=== PATIENT | male | born 1950 | race Caucasian/White ===

== ENCOUNTER 2020-03-21 18:12 | Emergency (ER) | payer OTHER, MEDICAID ==
[~2020-03-21] VITALS: Ht 188 cm; Wt 83.9 kg
[2020-03-21 18:39] VITALS: BP 139/82
[2020-03-21 19:38] LABS: Urine Bacteria FEW /hpf (None Seen); Urine Blood TRACE /uL (Negative); Urine Specific Gravity 1.031 (1.001-1.035); Urine WBC 339 /hpf (0 - 3); Urine WBC Clumps PRESENT /hpf (None Seen)
[2020-03-21 21:23] LABS: Basophils # (auto) 0.1 10 ^3/uL (0-0.2); Basophils % (auto) 0.8 % (0.0-2.0); Eosinophils # (auto) 0.2 10 ^3/uL (0-0.8); Eosinophils % (auto) 2.3 % (0.0-7.0); Hematocrit 49.3 % (41.0-53.0); Hemoglobin 16.5 g/dL (13.5-17.5); Lymphocytes # (auto) 1.7 10 ^3/uL (0.4-5.4); Lymphocytes % (auto) 21.1 % (10.0-50.0); Mean Corpuscular Hemoglobin 31.1 pg (28.0-32.0); Mean Corpuscular Hgb Conc. 33.5 g/dL (32.0-36.0); Mean Corpuscular Volume 92.6 fL (80.0-100.0); Monocytes # (auto) 0.6 10 ^3/uL (0-1.3); Monocytes % (auto) 7.6 % (0.0-12.0); Neutrophils # (auto) 5.4 10 ^3/uL (1.6-8.6); Neutrophils % (auto) 68.2 % (37.0-80.0); Nucleated Red Blood Cells % 0.1 %; Platelet Count (auto) 181 10^3/uL (140-450); Red Blood Cells 5.32 10^6/uL (4.5-5.90); Red Cell Distribution Width 13.6 % (11.8-14.3); White Blood Cell 7.9 10^3/uL (4.4-10.8)
[2020-03-21 21:35] LABS: Albumin 3.5 g/dL (3.4-5.0); Potassium 4.1 mmol/L (3.5-5.1)
[2020-03-21 21:40] LABS: BUN/Creatinine Ratio 26.1; Bilirubin, Total 0.6 mg/dL (0.2-1.0); Total Protein 7.6 g/dL (6.4-8.2)
== END 2020-03-21 22:50 | disposition home or self-care (01) ==
LOC: ER 18:12
DX: R32 Unspecified urinary incontinence (principal); N39.0 Urinary tract infection, site not specified; E11.9 Type 2 diabetes mellitus without complications; I11.0 Hypertensive heart disease with heart failure; I50.9 Heart failure, unspecified
CPT/HCPCS: 36415; 51702; 80053; 81001; 83690; 85025

== ENCOUNTER 2022-07-01 21:23 | Inpatient (IN) | payer OTHER, MEDICAID ==
[~2022-07-01] VITALS: Ht 188 cm; Wt 91.9 kg
[2022-07-01] MEDS ORDERED: hydrALAZINE HCL 10 MG TAB PO PRN (22:45)
[2022-07-01] MEDS ORDERED: VANCOMYCIN PER PHARMACY 0 MG IV SCH (22:45)
[2022-07-01] MEDS ORDERED: ACETAMINOPHEN 325 MG TAB PO PRN (22:45)
[2022-07-01] MEDS ORDERED: ONDANSETRON HCL 4 MG/2 ML VIAL IV PRN (22:45)
[2022-07-01] MEDS ORDERED: MORPHINE SULFATE INJ 2 MG/ml SYRG IV PRN (22:45)
[2022-07-01] MEDS ORDERED: DEXTROSE (50%) 50ML SYRG IV PRN (23:00)
[2022-07-01 23:19] LABS: INR 1.1 (0.9-1.15)
[2022-07-01] MEDS ORDERED: INSLANTI SC (23:40)
[2022-07-01] MEDS ORDERED: ZOLP10TA PO (23:47)
[2022-07-02 01:52] LABS: Anion Gap 7 (5-15); BUN/Creatinine Ratio 20.6 (10.0-20.0); Blood Urea Nitrogen 27 mg/dL (7-18); Calcium 8.3 mg/dL (8.5-10.1); Carbon Dioxide 22 mmol/L (21-32); Chloride 111 mmol/L (98-107); GFR African American 69 mL/min; GFR Non-African American 57 mL/min; Glucose 174 mg/dL (74-106); Potassium 3.9 mmol/L (3.5-5.1); Sodium 140 mmol/L (136-145)
[2022-07-02] MEDS: HYDROcodone-ACET 5/325MG TAB PO PRN ×2 (02:18→11:50)
[2022-07-02 05:00] VITALS: BP 140/94
[2022-07-02] MEDS: ACCU-CHEK COMFORT CURVE STRIP VI SCH ×4 (06:31→22:14)
[2022-07-02] MEDS: InsuLIN REG 1unit/0.01ml Soln (100units/ml) SC SCH ×4 (06:33→22:22)
[2022-07-02 07:13] LABS: BUN/Creatinine Ratio 24.2 (10.0-20.0); Calcium 8.9 mg/dL (8.5-10.1)
[2022-07-02 07:18] LABS: Basophils # (auto) 0.1 10 ^3/uL (0-0.2); Basophils % (auto) 0.9 % (0.0-2.0); Eosinophils # (auto) 0.2 10 ^3/uL (0-0.8); Eosinophils % (auto) 1.7 % (0.0-7.0); Hemoglobin 15.5 g/dL (13.5-17.5); Lymphocytes # (auto) 1.5 10 ^3/uL (0.4-5.4); Mean Corpuscular Hemoglobin 31.1 pg (28.0-32.0); Mean Corpuscular Volume 94.1 fL (80.0-100.0); Monocytes # (auto) 0.7 10 ^3/uL (0-1.3); Monocytes % (auto) 7.5 % (0.0-12.0); Neutrophils # (auto) 6.7 10 ^3/uL (1.6-8.6); Neutrophils % (auto) 73.9 % (37.0-80.0); Nucleated Red Blood Cells % 0.2 %; Red Cell Distribution Width 14.5 % (11.8-14.3); White Blood Cell 9.1 10^3/uL (4.4-10.8)
[2022-07-02] MEDS ORDERED: VANCOMYCIN 1GM/250ML 250 ML IV ONE (07:30)
[2022-07-02 08:30] VITALS: BP 134/99
[2022-07-02] MEDS: CEFEPIME 1GM/ 50ML 50 ML IV SCH ×2 (11:53→22:14)
[2022-07-02 12:30] VITALS: BP 126/95
[2022-07-02] MEDS ORDERED: ALBU108A5 IN (13:22)
[2022-07-02] MEDS ORDERED: FLUT500M2 INH (13:23)
[2022-07-02] MEDS ORDERED: ZOLP5TAB5 PO (13:33)
[2022-07-02 14:50] VITALS: BP 126/95
[2022-07-02 17:00] VITALS: BP 124/83
[2022-07-02] MEDS ORDERED: ZOLPIDEM TARTRATE 5 MG TAB PO SCH (18:00)
[2022-07-02] MEDS: ALBUTEROL SULF 2.5 MG/0.5ML(0.5%) NEB SOLN NEB PRN (19:50)
[2022-07-02] MEDS: ZOLPIDEM TARTRATE 5 MG TAB PO PRN (20:36)
[2022-07-02] MEDS: VANCOMYCIN 1GM/250ML 250 ML IV SCH (20:37)
[2022-07-02] MEDS ORDERED: LORazepam 2MG/ML-1ML VIAL IV ONE (21:15)
[2022-07-02 22:00] VITALS: BP 143/95
[2022-07-02] MEDS: FLUTICASONE SALMETEROL IN SCH (22:00)
[2022-07-03 05:00] VITALS: BP 140/102
[2022-07-03] MEDS: ALBUTEROL SULF 2.5 MG/0.5ML(0.5%) NEB SOLN NEB PRN (05:41)
[2022-07-03] MEDS: ACCU-CHEK COMFORT CURVE STRIP VI SCH ×4 (06:28→22:08)
[2022-07-03] MEDS: InsuLIN REG 1unit/0.01ml Soln (100units/ml) SC SCH ×4 (06:29→22:06)
[2022-07-03 06:51] LABS: Calcium 8.7 mg/dL (8.5-10.1)
[2022-07-03 07:12] LABS: Basophils # (auto) 0.1 10 ^3/uL (0-0.2); Basophils % (auto) 1.4 % (0.0-2.0); Eosinophils # (auto) 0.1 10 ^3/uL (0-0.8); Hematocrit 43.4 % (41.0-53.0); Hemoglobin 14.9 g/dL (13.5-17.5); Lymphocytes # (auto) 1.3 10 ^3/uL (0.4-5.4); Mean Corpuscular Hemoglobin 31.3 pg (28.0-32.0); Mean Corpuscular Hgb Conc. 34.2 g/dL (32.0-36.0); Mean Corpuscular Volume 91.3 fL (80.0-100.0); Monocytes # (auto) 0.7 10 ^3/uL (0-1.3); Monocytes % (auto) 6.9 % (0.0-12.0); Neutrophils # (auto) 8.3 10 ^3/uL (1.6-8.6); Neutrophils % (auto) 78.7 % (37.0-80.0); Nucleated Red Blood Cells % 0.1 %; Red Blood Cells 4.76 10^6/uL (4.5-5.90); Red Cell Distribution Width 14.4 % (11.8-14.3); White Blood Cell 10.6 10^3/uL (4.4-10.8)
[2022-07-03] MEDS: VANCOMYCIN 1GM/250ML 250 ML IV SCH ×2 (09:22→22:07)
[2022-07-03] MEDS: FLUTICASONE SALMETEROL IN SCH ×2 (09:22→22:00)
[2022-07-03 09:56] VITALS: BP 139/99
[2022-07-03] MEDS: CEFEPIME 1GM/ 50ML 50 ML IV SCH ×2 (10:39→22:08)
[2022-07-03] MEDS ORDERED: ALBUTEROL SULF 2.5 MG/0.5ML(0.5%) NEB SOLN ONE (12:17)
[2022-07-03 13:00] VITALS: BP 126/84
[2022-07-03] MEDS: LORazepam 0.5 MG TAB PO PRN ×2 (13:59→22:37)
[2022-07-03] MEDS: ALBUTEROL SULF 2.5 MG/0.5ML(0.5%) NEB SOLN NEB SCH ×3 (14:11→22:08)
[2022-07-03 16:30] VITALS: BP 146/92
[2022-07-03] MEDS: HYDROcodone-ACET 10/325MG TAB PO PRN (20:01)
[2022-07-03 20:20] VITALS: BP 125/90
[2022-07-03 22:00] VITALS: BP 125/90
[2022-07-03] MEDS: ZOLPIDEM TARTRATE 5 MG TAB PO PRN (22:07)
[2022-07-04] VITALS (8 sets, daily range): BP systolic 122–143; BP diastolic 89–98
[2022-07-04] MEDS: ALBUTEROL SULF 2.5 MG/0.5ML(0.5%) NEB SOLN NEB SCH ×6 (02:00→22:20)
[2022-07-04] MEDS: HYDROcodone-ACET 10/325MG TAB PO PRN ×2 (02:43→10:28)
[2022-07-04] MEDS: ACCU-CHEK COMFORT CURVE STRIP VI SCH ×4 (06:55→22:22)
[2022-07-04] MEDS: InsuLIN REG 1unit/0.01ml Soln (100units/ml) SC SCH ×4 (06:55→22:13)
[2022-07-04] MEDS: FLUTICASONE SALMETEROL IN SCH ×2 (10:00→22:00)
[2022-07-04] MEDS: VANCOMYCIN 1GM/250ML 250 ML IV SCH ×2 (10:28→22:02)
[2022-07-04] MEDS: CEFEPIME 1GM/ 50ML 50 ML IV SCH (10:28)
[2022-07-04 10:33] LABS: BUN/Creatinine Ratio 21.6 (10.0-20.0); Calcium 8.5 mg/dL (8.5-10.1); Potassium 4.2 mmol/L (3.5-5.1)
[2022-07-04 10:42] LABS: Basophils # (auto) 0.1 10 ^3/uL (0-0.2); Basophils % (auto) 0.6 % (0.0-2.0); Eosinophils # (auto) 0.2 10 ^3/uL (0-0.8); Eosinophils % (auto) 2.8 % (0.0-7.0); Hematocrit 46.5 % (41.0-53.0); Hemoglobin 15.3 g/dL (13.5-17.5); Lymphocytes # (auto) 1.8 10 ^3/uL (0.4-5.4); Lymphocytes % (auto) 19.9 % (10.0-50.0); Mean Corpuscular Hemoglobin 30.9 pg (28.0-32.0); Mean Corpuscular Hgb Conc. 32.9 g/dL (32.0-36.0); Mean Corpuscular Volume 93.9 fL (80.0-100.0); Monocytes # (auto) 1.2 10 ^3/uL (0-1.3); Monocytes % (auto) 13.1 % (0.0-12.0); Neutrophils # (auto) 5.7 10 ^3/uL (1.6-8.6); Neutrophils % (auto) 63.6 % (37.0-80.0); Nucleated Red Blood Cells % 0.2 %; Red Blood Cells 4.95 10^6/uL (4.5-5.90); Red Cell Distribution Width 14.8 % (11.8-14.3); White Blood Cell 8.9 10^3/uL (4.4-10.8)
[2022-07-04] MEDS: LORazepam 0.5 MG TAB PO PRN (11:40)
[2022-07-04] MEDS ORDERED: FUROSEMIDE 40 MG/4 ML VIAL IV ONE (13:00)
[2022-07-04] MEDS: IPRATROPIUM BROM 0.5 MG/2.5ML INH SOL NEB SCH ×3 (14:26→22:20)
[2022-07-04 16:35] LABS: Alcohol, Urine < 3.0 mg/dL (0-10); Amphetamine Screen, Urine POSITIVE (NEGATIVE); Barbiturate Scree,Urine NEGATIVE (NEGATIVE); Benzodiazephine Screen, Urine NEGATIVE (NEGATIVE); Cannabinoid Screen, Urine POSITIVE (NEGATIVE)
[2022-07-04 16:44] LABS: Cocaine Screen, Urine NEGATIVE (NEGATIVE); Opiate Scree,Urine NEGATIVE (NEGATIVE); Phencyclidine Screen, Urine NEGATIVE (NEGATIVE)
[2022-07-04] MEDS: FUROSEMIDE 40 MG/4 ML VIAL IV SCH (17:33)
[2022-07-05] VITALS (8 sets, daily range): BP systolic 117–135; BP diastolic 63–90
[2022-07-05] MEDS: LORazepam 0.5 MG TAB PO PRN ×2 (00:31→08:39)
[2022-07-05] MEDS: IPRATROPIUM BROM 0.5 MG/2.5ML INH SOL NEB SCH ×6 (02:36→22:39)
[2022-07-05] MEDS: ALBUTEROL SULF 2.5 MG/0.5ML(0.5%) NEB SOLN NEB SCH ×6 (02:36→22:39)
[2022-07-05] MEDS: FUROSEMIDE 40 MG/4 ML VIAL IV SCH ×2 (06:10→18:09)
[2022-07-05] MEDS: InsuLIN REG 1unit/0.01ml Soln (100units/ml) SC SCH ×4 (06:12→22:02)
[2022-07-05] MEDS: ACCU-CHEK COMFORT CURVE STRIP VI SCH ×4 (06:12→22:02)
[2022-07-05] MEDS: FLUTICASONE SALMETEROL IN SCH ×2 (09:53→22:00)
[2022-07-05] MEDS: VANCOMYCIN 1GM/250ML 250 ML IV SCH ×2 (09:53→20:57)
[2022-07-05] MEDS ORDERED: DAKINS HALF STR 0.25% (NaHypochlorite) 473 ML TOPICAL SOL TOP ONE (13:00)
[2022-07-06] MEDS: ALBUTEROL SULF 2.5 MG/0.5ML(0.5%) NEB SOLN NEB SCH ×6 (02:30→22:59)
[2022-07-06] MEDS: IPRATROPIUM BROM 0.5 MG/2.5ML INH SOL NEB SCH ×6 (02:30→22:59)
[2022-07-06] MEDS: HYDROcodone-ACET 10/325MG TAB PO PRN ×2 (03:24→20:18)
[2022-07-06 05:00] VITALS: BP 113/65
[2022-07-06] MEDS: FUROSEMIDE 40 MG/4 ML VIAL IV SCH ×2 (06:35→18:01)
[2022-07-06] MEDS: InsuLIN REG 1unit/0.01ml Soln (100units/ml) SC SCH ×4 (06:35→21:31)
[2022-07-06] MEDS: ACCU-CHEK COMFORT CURVE STRIP VI SCH ×4 (06:35→21:31)
[2022-07-06 09:00] VITALS: BP 136/56
[2022-07-06] MEDS: VANCOMYCIN 1GM/250ML 250 ML IV SCH (09:55)
[2022-07-06] MEDS: FLUTICASONE SALMETEROL IN SCH ×2 (09:56→22:00)
[2022-07-06 13:00] VITALS: BP 122/92
[2022-07-06 17:00] VITALS: BP 129/57
[2022-07-06] MEDS: DAKINS HALF STR 0.25% (NaHypochlorite) 473 ML TOPICAL SOL TOP SCH (17:29)
[2022-07-06 20:00] VITALS: BP 134/90
[2022-07-06 22:00] VITALS: BP 104/58
[2022-07-07] MEDS: VANCOMYCIN 1GM/250ML 250 ML IV SCH ×2 (00:23→15:00)
[2022-07-07] MEDS: IPRATROPIUM BROM 0.5 MG/2.5ML INH SOL NEB SCH ×4 (02:00→14:05)
[2022-07-07] MEDS: ALBUTEROL SULF 2.5 MG/0.5ML(0.5%) NEB SOLN NEB SCH ×4 (02:00→14:05)
[2022-07-07 05:00] VITALS: BP 128/90
[2022-07-07] MEDS: HYDROcodone-ACET 10/325MG TAB PO PRN ×2 (05:37→15:29)
[2022-07-07] MEDS: FUROSEMIDE 40 MG/4 ML VIAL IV SCH (05:38)
[2022-07-07] MEDS: InsuLIN REG 1unit/0.01ml Soln (100units/ml) SC SCH ×2 (06:28→12:05)
[2022-07-07] MEDS: ACCU-CHEK COMFORT CURVE STRIP VI SCH ×2 (06:38→11:50)
[2022-07-07 08:00] VITALS: BP 122/68
[2022-07-07 09:06] VITALS: BP 122/68
[2022-07-07] MEDS: FLUTICASONE SALMETEROL IN SCH (10:00)
[2022-07-07] MEDS: DAKINS HALF STR 0.25% (NaHypochlorite) 473 ML TOPICAL SOL TOP SCH (10:30)
[2022-07-07 12:04] LABS: Calcium 8.7 mg/dL (8.5-10.1); Potassium 3.9 mmol/L (3.5-5.1)
[2022-07-07 12:06] LABS: BUN/Creatinine Ratio 28.1 (10.0-20.0)
[2022-07-07 12:30] VITALS: BP 113/77
[2022-07-07] MEDS ORDERED: CEPH-510 PO ×2 (15:02)
[2022-07-07 15:39] VITALS: BP 128/90
[2022-07-07] MEDS ORDERED: AUG875T PO (16:41)
== END 2022-07-07 16:30 | disposition home health service (06) | DRG 622 ==
LOC: UNDOADMIN 21:42 → WEST WING 21:42 → TELE-WESTW 22:45
PROVIDERS: ADMIT Internal Medicine; ATTEND Internal Medicine
PROC: 0JBQ0ZZ Excision of Right Foot Subcutaneous Tissue and Fascia, Open Approach (ICD-10-PCS; principal; 2022-07-04)
DX: E11.621 Type 2 diabetes mellitus with foot ulcer (principal); I50.23 Acute on chronic systolic (congestive) heart failure; J96.21 Acute and chronic respiratory failure with hypoxia; I42.9 Cardiomyopathy, unspecified; I47.1 Supraventricular tachycardia; Z20.822 Contact with and (suspected) exposure to COVID-19; L97.519 Non-pressure chronic ulcer of other part of right foot with unspecified severity; F15.90 Other stimulant use, unspecified, uncomplicated; F51.04 Psychophysiologic insomnia; I11.0 Hypertensive heart disease with heart failure; I25.10 Atherosclerotic heart disease of native coronary artery without angina pectoris; J44.9 Chronic obstructive pulmonary disease, unspecified; N40.0 Benign prostatic hyperplasia without lower urinary tract symptoms; Z79.4 Long term (current) use of insulin; Z82.49 Family history of ischemic heart disease and other diseases of the circulatory system; Z95.2 Presence of prosthetic heart valve
CPT/HCPCS: 36415; 71045; 73630; 80048; 80202; 80307; 82565; 82962; 83735; 84484; 85025; 85610; 87040; 87077; 87081; 87186; 87205; 93306; 94640; G0378; J1815

== ENCOUNTER 2022-08-09 14:03 | Inpatient (IN) | payer OTHER, MEDICAID ==
[~2022-08-09] VITALS: Ht 188 cm; Wt 90.7 kg
[~2022-08-09 14:03] MED LIST: ALBU108A5 IN; AUG875T PO; FLUT500M2 INH; INSLANTI SC; ZOLP5TAB5 PO
[2022-08-09 14:41] LABS: Basophils # (auto) 0 10 ^3/uL (0-0.2); Basophils % (auto) 0.1 % (0.0-2.0); Eosinophils # (auto) 0 10 ^3/uL (0-0.8); Hematocrit 50.3 % (41.0-53.0); Hemoglobin 16.3 g/dL (13.5-17.5); Lymphocytes # (auto) 0.6 10 ^3/uL (0.4-5.4); Lymphocytes % (auto) 2.9 % (10.0-50.0); Mean Corpuscular Hgb Conc. 32.5 g/dL (32.0-36.0); Mean Corpuscular Volume 92.1 fL (80.0-100.0); Monocytes # (auto) 0.6 10 ^3/uL (0-1.3); Monocytes % (auto) 2.7 % (0.0-12.0); Neutrophils # (auto) 21.2 10 ^3/uL (1.6-8.6); Neutrophils % (auto) 94.3 % (37.0-80.0); Red Blood Cells 5.46 10^6/uL (4.5-5.90); Red Cell Distribution Width 15.2 % (11.8-14.3); White Blood Cell 22.4 10^3/uL (4.4-10.8)
[2022-08-09 15:02] LABS: Chloride 99 mmol/L (98-107); Potassium 4.3 mmol/L (3.5-5.1); Sodium 129 mmol/L (136-145)
[2022-08-09 15:06] LABS: Lactic Acid w/Reflex 3.3 mmol/L (0.4-2.0)
[2022-08-09 15:11] LABS: Alanine Aminotransferase 62 U/L (16-61); Albumin 2.7 g/dL (3.4-5.0); Alkaline Phosphatase 124 U/L (45-117); Anion Gap 9 (5-15); Aspartate Aminotransferase 38 U/L (15-37); BUN/Creatinine Ratio 18.5 (10.0-20.0); Bilirubin, Total 1.8 mg/dL (0.2-1.0); Blood Urea Nitrogen 27 mg/dL (7-18); Calcium 9.4 mg/dL (8.5-10.1); Carbon Dioxide 21 mmol/L (21-32); GFR African American 61 mL/min; GFR Non-African American 50 mL/min; Glucose 243 mg/dL (74-106); Lipase 66 U/L (73-393); Total Protein 7.2 g/dL (6.4-8.2)
[2022-08-09 15:16] LABS: CRP High Sensitivity > 19 mg/dL (< 0.3)
[2022-08-09] MEDS ORDERED: PIPERACILLIN-TAZOB 3.375GM 100 ML IV ONE (15:30)
[2022-08-09] MEDS ORDERED: FUROSEMIDE 40 MG/4 ML VIAL IV ONE (15:45)
[2022-08-09] MEDS ORDERED: SODIUM CHLORIDE 0.9% 500 ML IV ONE (15:45)
[2022-08-09] MEDS ORDERED: VANCOMYCIN 1GM/250ML 250 ML IV ONE ×2 (18:15→22:45)
[2022-08-09 20:15] VITALS: BP 107/80
[2022-08-09] MEDS ORDERED: VANCOMYCIN PER PHARMACY 0 MG IV SCH (21:15)
[2022-08-09] MEDS ORDERED: DOCUSATE SOD 100 MG CAP PO PRN (21:15)
[2022-08-09] MEDS ORDERED: DEXTROSE (50%) 50ML SYRG IV PRN (21:15)
[2022-08-09] MEDS ORDERED: ACETAMINOPHEN 325 MG TAB PO PRN (21:15)
[2022-08-09] MEDS ORDERED: ONDANSETRON HCL 4 MG/2 ML VIAL IV PRN (21:15)
[2022-08-09] MEDS ORDERED: HYDROcodone-ACET 5/325MG TAB PO PRN (21:15)
[2022-08-09] MEDS ORDERED: ALBUTEROL SULF 2.5 MG/0.5ML(0.5%) NEB SOLN NEB PRN (21:15)
[2022-08-09] MEDS ORDERED: SODIUM CHLOR 0.9% PF (SALINE LOCK) 10ML VIAL/SYR IV SCH (22:00)
[2022-08-09] MEDS ORDERED: ACCU-CHEK COMFORT CURVE STRIP VI SCH (22:00)
[2022-08-09] MEDS ORDERED: InsuLIN REG 1unit/0.01ml Soln (100units/ml) SC SCH (22:00)
[2022-08-09] MEDS ORDERED: ATORVASTATIN 20 MG TAB PO SCH (22:00)
[2022-08-09] MEDS ORDERED: MORPHINE SULFATE INJ 2 MG/ml SYRG IV PRN (22:15)
[2022-08-09] MEDS ORDERED: NITROGLYCERIN 0.4 MG SL TAB SL PRN (22:15)
[2022-08-09] MEDS ORDERED: cefTRIAXone 1GM/50ML D5W 50 ML IV SCH (22:34)
[2022-08-10] MEDS ORDERED: InsuLIN REG 1unit/0.01ml Soln (100units/ml) SC SCH (07:00)
[2022-08-10] MEDS ORDERED: FUROSEMIDE 40 MG/4 ML VIAL IV SCH (10:00)
[2022-08-10] MEDS ORDERED: ASPirin 81 mg TAB PO SCH (10:00)
== END 2022-08-09 23:06 | disposition left against medical advice (07) | DRG 871 ==
LOC: EDBD 14:03 → ER 14:03 → TELE 22:15
PROVIDERS: ADMIT Nurse Practitioner Family; ATTEND Nurse Practitioner Family
DX: A41.9 Sepsis, unspecified organism (principal); I50.23 Acute on chronic systolic (congestive) heart failure; E87.1 Hypo-osmolality and hyponatremia; L03.115 Cellulitis of right lower limb; L03.116 Cellulitis of left lower limb; N17.9 Acute kidney failure, unspecified; I11.0 Hypertensive heart disease with heart failure; I25.10 Atherosclerotic heart disease of native coronary artery without angina pectoris; E11.65 Type 2 diabetes mellitus with hyperglycemia; R09.89 Other specified symptoms and signs involving the circulatory and respiratory systems; R33.9 Retention of urine, unspecified; R79.89 Other specified abnormal findings of blood chemistry; Z53.29 Procedure and treatment not carried out because of patient's decision for other reasons; Z95.1 Presence of aortocoronary bypass graft; E88.09 Other disorders of plasma-protein metabolism, not elsewhere classified; R09.02 Hypoxemia
CPT/HCPCS: 36415; 71045; 80053; 83605; 83690; 83735; 83880; 84484; 85025; 86141; 87040; 93925; 93970; 99291; G0378; J2543